=== PATIENT | male | born 1965 | race African-American/Black ===

== ENCOUNTER 2023-11-07 14:02 | Outpatient (CLI) | payer BC | END 2023-11-07 14:03 | disposition home or self-care (01) | LOC: BICRAD 14:02 | PROVIDERS: ATTEND Family Medicine | DX: J20.9 Acute bronchitis, unspecified (principal) | CPT/HCPCS: 71046 ==

== ENCOUNTER 2024-07-09 08:19 | Outpatient (CLI) | payer BC | END 2024-07-09 08:20 | disposition home or self-care (01) | LOC: NM 08:19 | PROVIDERS: ATTEND Specialist | DX: T84.84XA Pain due to internal orthopedic prosthetic devices, implants and grafts, initial encounter (principal); M17.12 Unilateral primary osteoarthritis, left knee; R94.8 Abnormal results of function studies of other organs and systems; Z96.652 Presence of left artificial knee joint | CPT/HCPCS: 78315; A9503 ==